=== PATIENT | male | born 1990 | race Two or more races ===

== ENCOUNTER 2023-03-17 23:30 | Emergency (ER) | payer MEDICAID ==
[~2023-03-17] VITALS: Ht 177.8 cm; Wt 104.4 kg
[2023-03-17 23:31] VITALS: BP 147/84
[2023-03-17 23:35] VITALS: PULSE 134; RESP 18; O2SAT 99
== END 2023-03-18 02:15 | disposition home or self-care (01) ==
LOC: ER 23:32
DX: T65.891A Toxic effect of other specified substances, accidental (unintentional), initial encounter (principal); F17.210 Nicotine dependence, cigarettes, uncomplicated; F15.90 Other stimulant use, unspecified, uncomplicated; Y92.89 Other specified places as the place of occurrence of the external cause

== ENCOUNTER → 2023-03-17 | Emergency (ER) | payer MEDICAID, OTHER | END | disposition left against medical advice (07) | LOC: ER 21:05 | DX: Z00.00 Encounter for general adult medical examination without abnormal findings (principal); Z76.0 Encounter for issue of repeat prescription; Z53.21 Procedure and treatment not carried out due to patient leaving prior to being seen by health care provider ==